=== PATIENT | male | born 1940 | race Hispanic/Latino ===

== ENCOUNTER 2020-07-15 05:09 | Emergency (ER) | payer MEDICARE ==
[2020-07-15] MEDS ORDERED: NA CHLORIDE 0.9% 1,000 ML ONE (05:50)
[2020-07-15 06:18] LABS: Absolute Lymphocytes (CBC) 1.1 K/uL (0.7-4.9); Basophils % 1.2 % (0-1.3); Hematocrit 42.2 % (39.6-49.0); Lymphocytes % 23.6 % (15.3-44.8); MPV 8.9 fL (7.6-11.3); RBC Red Blood Cell Count 4.62 M/uL (4.33-5.43)
[2020-07-15 06:42] LABS: ALT/SGPT 30 U/L (12-78); AST/SGOT 14 U/L (15-37); Albumin 3.4 g/dL (3.4-5.0); Alkaline Phosphatase 105 U/L (45-117); BUN Blood Urea Nitrogen 17 mg/dL (7-18); Bicarbonate 27 mmol/L (21-32); Bilirubin Direct 0.1 mg/dL (0-0.2); Bilirubin Total 0.4 mg/dL (0.2-1.0); Glucose Level 307 mg/dL (74-106); Lipase 131 U/L (73-393); Magnesium 1.9 mg/dL (1.8-2.4); NT PRO-BNP 94 pg/mL (<450); Protein, Total 7.2 g/dL (6.4-8.2); Sodium Level 138 mmol/L (136-145); Troponin (Emerg Dept Use Only) < 0.02 ng/mL (0.0-0.045)
--- NOTE | 2020-07-15 07:19 | ER ---
Nurse's Notes [facility] Name: Freddy Garcia Age: 80 yrs Sex: Male : 1940 Arrival Date: 07/15/2020 Time: 05:11 Bed 2 Private MD: Diagnosis: Type 2 diabetes mellitus-poorly controlled;Alzheimer's disease;Dementia in other diseases classified elsewhere Presentation: 07/15 05:11 Chief complaint: EMS states: PT is a diabetic and has dementia. Is acting more altered jb4 than normal. BGL of 363 with ashley. 05:11 Coronavirus screen: Client denies travel out of the [place] in the last 14 days. At this jb4 time, the client does not indicate any symptoms associated with coronavirus-19. Ebola Screen: No symptoms or risks identified at this time. Initial Sepsis Screen: Does the patient meet any 2 criteria? No. Patient's initial sepsis screen is negative. Does the patient have a suspected source of infection? No. Patient's initial sepsis screen is negative. Risk Assessment: Do you want to hurt yourself or someone else? Patient reports no desire to harm self or others. Onset of symptoms was July 15, 2020. 05:11 Method Of Arrival: EMS: [facility] 4 05:11 Acuity: IESHA 3 jb4 05:11 Care prior to arrival: Medication(s) given: NS 500ml IV initiated. 20 GA, in the right jb4 antecubital area. Historical: - Allergies: 05:11 No Known Allergies; jb4 - Home Meds: 05:11 mirtazapine Oral [Active]; memantine oral oral [Active]; tamsulosin oral oral [Active]; jb4 Metformin Oral [Active]; Timolol Maleate Opht [Active]; - PMHx: 05:11 Diabetes - NIDDM; Alzheimers; jb4 - PSHx: 05:11 Unable to obtain; jb4 - Immunization history:: Adult Immunizations unknown. - Social history:: Smoking status: unknown. - Family history:: not pertinent. Screenin:11 Abuse screen: Denies threats or abuse. Nutritional screening: No deficits noted. jb4 Tuberculosis screening: No symptoms or risk factors identified. Fall Risk None identified. Assessment: 05:11 General: Appears in no apparent distress. comfortable, Behavior is calm, cooperative, jb4 appropriate for age. Pain: Denies pain. Neuro: Level of Consciousness is awake, alert, obeys commands, Oriented to person, place, time, situation. Cardiovascular: Patient's skin is warm and dry. Respiratory: Airway is patent Respiratory effort is even, unlabored, Respiratory pattern is regular, symmetrical. GI: No signs and/or symptoms were reported involving the gastrointestinal system. : No signs and/or symptoms were reported regarding the genitourinary system. EENT: No signs and/or symptoms were reported regarding the EENT system. Derm: Skin is intact, Skin is pink, warm \T\ dry. Musculoskeletal: Circulation, motion, and sensation intact. Range of motion: intact in all extremities. 06:00 Reassessment: Patient appears in no apparent distress at this time. Patient and/or jb4 family updated on plan of care and expected duration. Pain level reassessed. Patient is alert, oriented x 3, equal unlabored respirations, skin warm/dry/pink. 07:00 Reassessment: Patient appears in no apparent distress at this time. Patient and/or jl7 family updated on plan of care and expected duration. Pain level reassessed. Patient is alert, oriented x 3, equal unlabored respirations, skin warm/dry/pink. Patient states feeling better. Neuro: Level of Consciousness is awake, alert, obeys commands, Oriented to person, place, time, situation. Vital Signs: 05:11 BP 186 / 96; Pulse 67; Resp 16; Temp 98.4(O); Pulse Ox 99% on R/A; Weight 79.38 kg (R); jb4 Height 5 ft. 9 in. (175.26 cm) (R); Pain 0/10; 06:00 BP 129 / 98; Pulse 66; Resp 16; Pulse Ox 99% on R/A; jb4 07:45 BP 160 / 88; Pulse 66; Resp 17; Pulse Ox 100% ; Pain 0/10; jl7 05:11 Body Mass Index 25.84 (79.38 kg, 175.26 cm) 4 ED Course: 05:11 Patient arrived in ED. sg 05:11 Arm band placed on right wrist. 4 05:14 Ubaldo Bolaños MD is Attending Physician. [facility] 05:25 Salvador Yanes, NIMESH is Primary Nurse. jb4 05:28 Triage completed. jb4 05:46 glucometer results - FOR PT WITH NO ID Sent. ds4 05:47 Glucose, Ancillary(No Armband) Sent. ds4 06:02 CT Head Brain wo Cont In Process Unspecified. EDMS 06:50 XRAY Chest (1 view) In Process Unspecified. EDMS 07:00 Patient has correct armband on for positive identification. Bed in low position. Call jl7 light in reach. Side rails up X 1. 07:00 Pulse ox on. NIBP on. jl7 07:00 No provider procedures requiring assistance completed. Initial lab(s) drawn, by ED jl staff, sent to lab. Maintain EMS IV. Dressing intact. Good blood return noted. Site clean \T\ dry. Gauge \T\ site: 20 right ac. 07:19 Cam Johnson MD is Referral Physician. [facility] 08:03 IV discontinued, intact, bleeding controlled, No redness/swelling at site. Pressure jl dressing applied. Administered Medications: 05:53 Drug: NS 0.9% 1000 ml Route: IV; Rate: 1 bolus; Site: right antecubital; banner 07:00 Follow up: Response: No adverse reaction; IV Status: Completed infusion; IV Intake: jl7 1000ml 07:50 Drug: Insulin Regular Human 7 units {Co-Signature: tw2 (Rosangela Lawson RN).} Route: IVP; [facility] Site: right antecubital; 08:02 Follow up: Response: No adverse reaction; Medication administered at discharge. jl7 07:50 Drug: LanTUS 30 units Route: Sub-Q; Site: abdomen; [facility] 08:02 Follow up: Response: Medication administered at discharge. jl7 Intake: 07:00 IV: 1000ml; Total: 1000ml. [facility] Outcome: 07:19 Discharge ordered by . [facility] 08:03 Discharged to home ambulatory. jl7 08:03 Condition: stable 08:03 Discharge instructions given to patient, family, Instructed on discharge instructions, follow up and referral plans. Demonstrated understanding of instructions, follow-up care. 08:04 Patient left the ED. jl7 Signatures: Dispatcher [employer] Eder Mcduffie RN RN sg Anderson, Corey, MD MD cha Swanson, Donovan 4 Joaquín, Salvador, RN RN jb4 Osman, Jahala, RN RN jl7 Rosangela Lawson RN tw2
--- NOTE | 2020-07-15 07:19 | EDPHYS ---
Physician Documentation [facility] Name: Freddy Garcia Age: 80 yrs Sex: Male : 1940 Arrival Date: 07/15/2020 Time: 05:11 Bed 2 Private MD: ED Physician Ubaldo Bolaños HPI: 07/15 05:22 This 80 yrs old Male presents to ER via Unassigned with complaints of high michael sugar and altered. 05:22 altered, hx of dementia. The patient presents with confusion, decreased mental status. michael Onset: The symptoms/episode began/occurred this morning. Possible causes: CVA or TIA, head injury, low blood sugar, unknown. Associated signs and symptoms: The patient has no apparent associated signs or symptoms. Patient's baseline: Neuro: alert and fully oriented. Severity of symptoms: At their worst the symptoms were mild in the emergency department the symptoms are unchanged. 05:25 Current symptoms: In the emergency department the patient's symptoms have improved, michael moderately. The patient has experienced similar episodes in the past, a few times. Historical: - Allergies: 05:11 No Known Allergies; jb4 - Home Meds: 05:11 mirtazapine Oral [Active]; memantine oral oral [Active]; tamsulosin oral oral [Active]; jb4 Metformin Oral [Active]; Timolol Maleate Opht [Active]; - PMHx: 05:11 Diabetes - NIDDM; Alzheimers; jb4 - PSHx: 05:11 Unable to obtain; jb4 - Immunization history:: Adult Immunizations unknown. - Social history:: Smoking status: unknown. - Family history:: not pertinent. ROS: 05:22 Constitutional: Negative for fever, chills, and weight loss, Eyes: Negative for injury, michael pain, redness, and discharge, ENT: Negative for injury, pain, and discharge, Neck: Negative for injury, pain, and swelling, Cardiovascular: Negative for chest pain, palpitations, and edema, Respiratory: Negative for shortness of breath, cough, wheezing, and pleuritic chest pain, Abdomen/GI: Negative for abdominal pain, nausea, vomiting, diarrhea, and constipation, Back: Negative for injury and pain, : Negative for injury, bleeding, discharge, and swelling, MS/Extremity: Negative for injury and deformity, Skin: Negative for injury, rash, and discoloration, Psych: Negative for depression, anxiety, suicide ideation, homicidal ideation, and hallucinations, Allergy/Immunology: Negative for hives, rash, and allergies, Endocrine: Negative for neck swelling, polydipsia, polyuria, polyphagia, and marked weight changes, Hematologic/Lymphatic: Negative for swollen nodes, abnormal bleeding, and unusual bruising. 05:22 Neuro: Positive for altered mental status. Exam: 05:22 Constitutional: This is a well developed, well nourished patient who is awake, alert, michael and in no acute distress. Head/Face: Normocephalic, atraumatic. Eyes: Pupils equal round and reactive to light, extra-ocular motions intact. Lids and lashes normal. Conjunctiva and sclera are non-icteric and not injected. Cornea within normal limits. Periorbital areas with no swelling, redness, or edema. ENT: Nares patent. No nasal discharge, no septal abnormalities noted. Tympanic membranes are normal and external auditory canals are clear. Oropharynx with no redness, swelling, or masses, exudates, or evidence of obstruction, uvula midline. Mucous membranes moist. Neck: Trachea midline, no thyromegaly or masses palpated, and no cervical lymphadenopathy. Supple, full range of motion without nuchal rigidity, or vertebral point tenderness. No Meningismus. Chest/axilla: Normal chest wall appearance and motion. Nontender with no deformity. No lesions are appreciated. Cardiovascular: Regular rate and rhythm with a normal S1 and S2. No gallops, murmurs, or rubs. Normal PMI, no JVD. No pulse deficits. Respiratory: Lungs have equal breath sounds bilaterally, clear to auscultation and percussion. No rales, rhonchi or wheezes noted. No increased work of breathing, no retractions or nasal flaring. Abdomen/GI: Soft, non-tender, with normal bowel sounds. No distension or tympany. No guarding or rebound. No evidence of tenderness throughout. Back: No spinal tenderness. No costovertebral tenderness. Full range of motion. Male : Normal genitalia with no discharge or lesions. Skin: Warm, dry with normal turgor. Normal color with no rashes, no lesions, and no evidence of cellulitis. MS/ Extremity: Pulses equal, no cyanosis. Neurovascular intact. Full, normal range of motion. Neuro: Awake and alert, GCS 15, oriented to person, place, time, and situation. Cranial nerves II-XII grossly intact. Motor strength 5/5 in all extremities. Sensory grossly intact. Cerebellar exam normal. Normal gait. Psych: Awake, alert, with orientation to person, place and time. Behavior, mood, and affect are within normal limits. 06:29 ECG was reviewed by the Attending Physician. [facility] Vital Signs: 05:11 BP 186 / 96; Pulse 67; Resp 16; Temp 98.4(O); Pulse Ox 99% on R/A; Weight 79.38 kg (R); jb4 Height 5 ft. 9 in. (175.26 cm) (R); Pain 0/10; 06:00 BP 129 / 98; Pulse 66; Resp 16; Pulse Ox 99% on R/A; jb4 07:45 BP 160 / 88; Pulse 66; Resp 17; Pulse Ox 100% ; Pain 0/10; jl7 05:11 Body Mass Index 25.84 (79.38 kg, 175.26 cm) jb4 MDM: 05:14 Patient medically screened. [facility] 05:24 Differential Diagnosis altered mental status. Differential Diagnosis: CVA, electrolyte michael abnormality, hypoglycemia, pneumonia, TIA, UTI, volume depletion. Data reviewed: vital signs, nurses notes, lab test result(s), EKG, radiologic studies, CT scan, plain films. Data interpreted: security monitor: rate is 75 beats/min, rhythm is regular, Pulse oximetry: on room air. Test interpretation: by ED physician or midlevel provider: ECG, plain radiologic studies. Counseling: I had a detailed discussion with the patient and/or guardian regarding: the historical points, exam findings, and any diagnostic results supporting the discharge/admit diagnosis, lab results, radiology results, the need for outpatient follow up. 07/15 05:21 Order name: Basic Metabolic Panel; Complete Time: 07:15 michael 07/15 05:21 Order name: CBC with Diff; Complete Time: 06:42 [facility] 07/15 05:21 Order name: LFT's; Complete Time: 07:15 michael 07/15 05:21 Order name: Magnesium; Complete Time: 07:15 michael 07/15 05:21 Order name: NT PRO-BNP; Complete Time: 07:15 [facility] 07/15 05:21 Order name: Troponin (emerg Dept Use Only); Complete Time: 07:15 [facility] 07/15 05:21 Order name: XRAY Chest (1 view) [facility] 07/15 05:21 Order name: Lipase; Complete Time: 07:15 [facility] 07/15 05:21 Order name: CT Head Brain wo Cont [facility] 07/15 05:21 Order name: Urine Culture [facility] 07/15 05:28 Order name: glucometer results - FOR PT WITH NO ID ds4 07/15 05:28 Order name: Glucose, Ancillary(No Armband) EDMS 07/15 05:46 Order name: Urine Dipstick--Ancillary (enter results) 2 07/15 05:21 Order name: EKG; Complete Time: 05:22 [facility] 07/15 05:21 Order name: Cardiac monitoring; Complete Time: 06:13 [facility] 07/15 05:21 Order name: EKG - Nurse/Tech; Complete Time: 06:13 [facility] 07/15 05:21 Order name: IV Saline Lock; Complete Time: 05:33 [facility] 07/15 05:21 Order name: Labs collected and sent; Complete Time: 06:03 [facility] 07/15 05:21 Order name: O2 Per Protocol; Complete Time: 05:28 [facility] 07/15 05:21 Order name: O2 Sat Monitoring; Complete Time: 05:28 [facility] 07/15 05:21 Order name: Urine Dipstick-Ancillary (obtain specimen); Complete Time: 05:26 [facility] EC:29 Rate is 62 beats/min. Rhythm is regular. QRS [place] is Normal. NM interval is normal. QRS michael interval is normal. QT interval is normal. No Q waves. T waves are Normal. No ST changes noted. Clinical impression: NSR w/ Non-specific ST/T Changes and No evidence of ischemia. Interpreted by me. Reviewed by me. Administered Medications: 05:53 Drug: NS 0.9% 1000 ml Route: IV; Rate: 1 bolus; Site: right antecubital; 4 07:00 Follow up: Response: No adverse reaction; IV Status: Completed infusion; IV Intake: jl7 1000ml 07:50 Drug: Insulin Regular Human 7 units {Co-Signature: tw2 (Rosangela Lawson RN).} Route: IVP; jl7 Site: right antecubital; 08:02 Follow up: Response: No adverse reaction; Medication administered at discharge. jl7 07:50 Drug: LanTUS 30 units Route: Sub-Q; Site: abdomen; [facility] 08:02 Follow up: Response: Medication administered at discharge. [facility] Disposition: 07/15/20 07:19 Discharged to Home. Impression: Type 2 diabetes mellitus - poorly controlled, Alzheimer's disease, Dementia in other diseases classified elsewhere. - Condition is Stable. - Discharge Instructions: Dementia, Type 2 Diabetes Mellitus, Diagnosis, Adult, Potassium Content of Foods, Diabetes Mellitus and Food, Type 2 Diabetes Mellitus, Diagnosis, Adult, [id number], Dementia, [id number]. - Medication Reconciliation Form, Thank You Letter, Antibiotic Education, Prescription Opioid Use form. - Follow up: Private Physician; When: 2 - 3 days; Reason: Recheck today's complaints, Continuance of care, Re-evaluation by your physician. Follow up: Cam Johnson MD; When: 2 - 3 days; Reason: Recheck today's complaints, Re-evaluation by your physician. - Problem is new. - Symptoms have improved. Signatures: Dispatcher [employer] EDUbaldo Santana MD MD cha Bryson, James, RN RN jb4 Judah Osman RN RN jl7 Rosangela Lawson RN tw2 Corrections: (The following items were deleted from the chart) 08:04 07:19 07/15/2020 07:19 Discharged to Home. Impression: Type 2 diabetes mellitus - [facility] poorly controlled; Alzheimer's disease; Dementia in other diseases classified elsewhere. Condition is Stable. Forms are Medication Reconciliation Form, Thank You Letter, Antibiotic Education, Prescription Opioid Use. Follow up: Private Physician; When: 2 - 3 days; Reason: Recheck today's complaints, Continuance of care, Re-evaluation by your physician. Follow up: Cam Johnson; When: 2 - 3 days; Reason: Recheck today's complaints, Re-evaluation by your physician. Problem is new. Symptoms have improved. michael
[2020-07-15] MEDS ORDERED: INSULIN -REGULAR HUMAN 50 UNIT/0.5 ML ML ONE (07:51)
[2020-07-15] MEDS ORDERED: INSULIN GLARGINE 100 UNITS/ML SQ ONE (07:51)
[2020-07-15 08:01] LABS: Urine Blood NEGATIVE (NEG); Urine Glucose 2+ (NEG); Urine Protein NEGATIVE (NEG); Urine Specific Gravity 1.015 (1.005-1.030); Urine pH 6.5 (5.0-7.0)
[2020-07-15 08:09] VITALS: TEMP 98.4
[2020-07-15 08:11] VITALS: BP 160/88; O2SAT 100
--- NOTE | 2020-07-15 08:43 | RAD REPORT ---
EXAM DESCRIPTION: RAD - Chest Single View - 07/15/2020 6:49 am CLINICAL HISTORY: COUGH COMPARISON: None TECHNIQUE: AP portable chest image was obtained 07/15/2020 6:49 am . FINDINGS: Lung volumes are low. No mass or consolidation. No significant failure or volume overload. Heart and vasculature are normal. No measurable pleural effusion and no pneumothorax. No acute bone findings seen. Focal density in the proximal humerus is probably a bone infarct. This does not appear to be aggressive. No acute aortic findings suspected. IMPRESSION: No acute cardiopulmonary process.
--- NOTE | 2020-07-15 10:25 | RAD REPORT ---
EXAM DESCRIPTION: CT - Head Brain Wo Cont - 07/15/2020 6:34 am CLINICAL HISTORY: The patient is 80 years old and is Male; DIZZINESS TECHNIQUE: Axial computed tomography images of the head/brain without intravenous contrast. Sagitt al and coronal reformatted images were created and reviewed. This CT exam was performed using one o r more of the following dose reduction techniques: automated exposure control, adjustment of the mA and/or kV according to patient size, and/or use of iterative reconstruction technique. COMPARISON: No relevant prior studies available. FINDINGS: Brain: Unremarkable. No hemorrhage. No significant white matter disease. No edema. Ventricles: Unremarkable. No ventriculomegaly. Bones/joints: Unremarkable. No acute skull fracture. Soft tissues: Unremarkable. Sinuses: Unremarkable as visualized. No acute sinusitis. Mastoid air cells: No significant mastoid fluid. IMPRESSION: No acute intracranial findings. No hemorrhage. Electronically signed by: Angelia Klein MD 07/15/2020 6:11 AM CDT Due to temporary technical issues with the PACS/Fluency reporting system, reports are being signed by the in house radiologist without review as a courtesy to ensure prompt reporting. The interpreting r adiologist is fully responsible for the content of the report.
== END 2020-07-15 08:04 | disposition home or self-care (01) ==
LOC: ER 05:09
DX: E11.65 Type 2 diabetes mellitus with hyperglycemia (principal); G30.9 Alzheimer's disease, unspecified; F02.80 Dementia in other diseases classified elsewhere, unspecified severity, without behavioral disturbance, psychotic disturbance, mood disturbance, and anxiety
CPT/HCPCS: 96361; 93005; 87088; 85025; 87086; 80048; 36415; 83735; 82947 ×2; 80076; 81003; 84484; 83690; 83880; 70450; 71045; 96372; 96374; 99284; J7030; J1815

== ENCOUNTER 2022-05-08 11:41 | Emergency (ER) | payer MEDICARE ==
[2022-05-08] MEDS ORDERED: IBUPROFEN 400 MG TAB ONE (12:44)
[2022-05-08] MEDS ORDERED: CYCLOBENZAPRINE 10 MG TAB ONE (12:44)
[2022-05-08] MEDS ORDERED: IBUPROFEN 200 MG TAB PO ONE (12:45)
--- NOTE | 2022-05-08 13:00 | RAD REPORT ---
EXAM DESCRIPTION: RAD - Shoulder Right 2 View - 05/08/2022 12:52 pm CLINICAL HISTORY: Right shoulder pain FINDINGS: A 27 millimeter sclerosis is present within the right humeral neck. It is equivocally mild ly enlarged from February 2020 exam Bones are osteoporotic. Moderate osteoarthritis involves the glenohumeral joint. Prominent osteophytes and joint space narrow ing is present. Mild osteoarthritis AC joint. No fracture or dislocation is seen. Given the equivocal mild enlargement of the 27 millimeter area of sclerosis within the right humeral neck it is recommended that the patient have a CT scan for further evaluation
--- NOTE | 2022-05-08 13:24 | ER ---
Nurse's Notes [facility] Name: Freddy Garcia Age: 81 yrs Sex: Male : 1940 Arrival Date: 05/08/2022 Time: 11:50 Bed 10 Private MD: Diagnosis: Pain in right shoulder Presentation: 05/08 12:09 Chief complaint: Patient states: "sharp" Right shoulder pain x 1 month; Denies injury. vg1 Coronavirus screen: Vaccine status: Patient reports receiving the 2nd dose of the covid vaccine. Client denies travel out of the [place] in the last 14 days. Ebola Screen: Patient denies exposure to infectious person. Patient denies travel to an Ebola-affected area in the 21 days before illness onset. Initial Sepsis Screen: Does the patient meet any 2 criteria? No. Patient's initial sepsis screen is negative. Does the patient have a suspected source of infection? No. Patient's initial sepsis screen is negative. Risk Assessment: Do you want to hurt yourself or someone else? Patient reports no desire to harm self or others. Onset of symptoms was March 2022. 12:09 Method Of Arrival: Ambulatory vg1 12:09 Acuity: IESHA 4 vg1 Triage Assessment: 12:09 General: Appears comfortable, Behavior is calm, cooperative. Pain: Complains of pain in vg1 Right shoulder Pain currently is 2 out of 10 on a pain scale. Musculoskeletal: Circulation, motion, and sensation intact. Historical: - Allergies: 12:11 No Known Allergies; vg1 - Home Meds: 12:11 Metformin Oral [Active]; vg1 - PMHx: 12:11 Alzheimers; Diabetes - NIDDM; vg1 12:14 Lewy Body Dementia; vg1 - Immunization history:: Client reports receiving the 2nd dose of the Covid vaccine. - Social history:: Smoking status: Patient denies any tobacco usage or history of. Screenin:45 Abuse screen: Denies threats or abuse. Denies injuries from another. Nutritional eh3 screening: No deficits noted. Tuberculosis screening: No symptoms or risk factors identified. Fall Risk None identified. Assessment: 12:43 General: Appears in no apparent distress. comfortable, Behavior is calm, cooperative, eh3 appropriate for age. Pain: Complains of pain in anterior aspect of right shoulder Pain radiates to right sternocleidomastoid Pain currently is 2 out of 10 on a pain scale. at worst was 10 out of 10 on a pain scale. Quality of pain is described as aching, radiating, sharp, tender, Pain began 1 month ago Is intermittent, Alleviated by rest, repositioning, relaxation, Aggravated by increased activity. 12:45 Neuro: Level of Consciousness is awake, alert, obeys commands, Oriented to person, eh3 place, time, situation, Sod Farmer are equal bilaterally Moves all extremities. Cardiovascular: Capillary refill < 3 seconds Patient's skin is warm and dry. Respiratory: Airway is patent Respiratory effort is even, unlabored. GI: No signs and/or symptoms were reported involving the gastrointestinal system. : No signs and/or symptoms were reported regarding the genitourinary system. EENT: No signs and/or symptoms were reported regarding the EENT system. Derm: No signs and/or symptoms reported regarding the dermatologic system. Musculoskeletal: Range of motion: intact in all extremities, Reports pain in right shoulder and right sternocleidomastoid and neck and right arm and anterior aspect of right shoulder. Vital Signs: 12:09 BP 160 / 85; Pulse 80; Resp 16; Temp 97.9; Pulse Ox 100% on R/A; Weight 66.22 kg; vg1 Height 5 ft. 3 in. (160.02 cm); Pain 2/10; 12:09 Body Mass Index 25.86 (66.22 kg, 160.02 cm) vg1 ED Course: 11:50 Patient arrived in ED. as 12:06 Bob Healy is PHCP. jl9 12:09 Arm band placed on. vg1 12:11 Triage completed. vg1 12:34 Shwetha Whiting, RN is Primary Nurse. ld1 12:45 Patient has correct armband on for positive identification. Bed in low position. Call eh3 light in reach. Side rails up X2. 12:45 No provider procedures requiring assistance completed. eh3 12:54 Shoulder Right (2 View) XRAY In Process Unspecified. EDMS 13:24 Bob Healy is PHCP. jl9 13:24 Reymundo Sullivan DO is Attending Physician. jl9 13:33 Patient did not have IV access during this emergency room visit. ld1 Administered Medications: 12:42 Drug: Flexeril (cyclobenzaprine) 10 mg Route: PO; eh3 12:42 Drug: Ibuprofen 600 mg Route: PO; eh3 Medication: 13:33 VIS not applicable for this client. ld1 Outcome: 13:23 Discharge ordered by . brett 13:32 Discharged to home via wheelchair. ld1 13:32 Condition: stable 13:32 Discharge instructions given to patient, Instructed on discharge instructions, follow up and referral plans. medication usage, Demonstrated understanding of instructions, follow-up care, medications, Prescriptions given X 1. 13:33 Patient left the ED. ld1 Signatures: Dispatcher [employer] Gwen Parks Victoria, RN RN vg1 Shwetha Whiting RN RN ld1 Rosa Maria Cortez eh3 Bob Healy9 Corrections: (The following items were deleted from the chart) 12:11 12:09 Pulse 80bpm; Resp 16bpm; Pulse Ox 100% RA; Temp 97.9F; 66.22 kg; Height 5 ft. 3 vg1 in.; BMI: 25.8; Pain 2/10; vg1 12:49 12:43 Pain: Complains of pain in anterior aspect of right shoulder Pain radiates to eh3 right sternocleidomastoid Pain currently is 2 out of 10 on a pain scale. at worst was 10 out of 10 on a pain scale. Quality of pain is described as eh3
--- NOTE | 2022-05-08 13:24 | EDPHYS ---
Physician Documentation [facility] Name: Freddy Garcia Age: 81 yrs Sex: Male : 1940 Arrival Date: 05/08/2022 Time: 11:50 Bed 10 Private MD: ED Physician Reymundo Sullivan HPI: 05/08 12:46 This 81 yrs old Male presents to ER via Ambulatory with complaints of Shoulder jl9 Pain.. 12:46 The patient or guardian complains of pain, that is acute. right shoulder. Context: jl9 Intermittent pain x1 month. . Modifying factors: The symptoms are aggravated by movement. Associated signs and symptoms: Pertinent positives: Pertinent negatives:. Severity of symptoms: in the emergency department the symptoms are unchanged. Treatment prior to arrival includes: over the counter medications, Tylenol. Historical: - Allergies: 12:11 No Known Allergies; vg1 - Home Meds: 12:11 Metformin Oral [Active]; vg1 - PMHx: 12:11 Alzheimers; Diabetes - NIDDM; vg1 12:14 Lewy Body Dementia; vg1 - Immunization history:: Client reports receiving the 2nd dose of the Covid vaccine. - Social history:: Smoking status: Patient denies any tobacco usage or history of. ROS: 13:08 Constitutional: Negative for fever, chills, and weight loss. jl9 13:08 Eyes: Negative for injury, pain, redness, and discharge, ENT: Negative for injury, pain, and discharge, Neck: Negative for injury, pain, and swelling, Cardiovascular: Negative for chest pain, palpitations, and edema, Respiratory: Negative for shortness of breath, cough, wheezing, and pleuritic chest pain, Abdomen/GI: Negative for abdominal pain, nausea, vomiting, diarrhea, and constipation, Back: Negative for injury and pain, : Negative for injury, bleeding, discharge, and swelling. 13:08 Skin: Negative for injury, rash, and discoloration, Neuro: Negative for headache, weakness, numbness, tingling, and seizure, Psych: Negative for depression, anxiety, suicide ideation, homicidal ideation, and hallucinations, Allergy/Immunology: Negative for hives, rash, and allergies, Endocrine: Negative for neck swelling, polydipsia, polyuria, polyphagia, and marked weight changes, Hematologic/Lymphatic: Negative for swollen nodes, abnormal bleeding, and unusual bruising. 13:08 MS/extremity: Positive for pain, Right shoulder pain upon movement. . Exam: 13:09 Constitutional: This is a well developed, well nourished patient who is awake, alert, jl9 and in no acute distress. Head/Face: Normocephalic, atraumatic. Eyes: Pupils equal round and reactive to light, extra-ocular motions intact. Lids and lashes normal. Conjunctiva and sclera are non-icteric and not injected. Cornea within normal limits. Periorbital areas with no swelling, redness, or edema. ENT: Mucous membranes moist. Neck: Trachea midline, no thyromegaly or masses palpated, and no cervical lymphadenopathy. Supple, full range of motion without nuchal rigidity, or vertebral point tenderness. No Meningismus. Chest/axilla: Normal chest wall appearance and motion. Nontender with no deformity. No lesions are appreciated. Cardiovascular: Regular rate and rhythm with a normal S1 and S2. No gallops, murmurs, or rubs. Normal PMI, no JVD. No pulse deficits. Respiratory: Lungs have equal breath sounds bilaterally, clear to auscultation and percussion. No rales, rhonchi or wheezes noted. No increased work of breathing, no retractions or nasal flaring. Abdomen/GI: Soft, non-tender, with normal bowel sounds. No distension or tympany. No guarding or rebound. No evidence of tenderness throughout. Back: No spinal tenderness. No costovertebral tenderness. Full range of motion. Skin: Warm, dry with normal turgor. Normal color with no rashes, no lesions, and no evidence of cellulitis. 13:09 Neuro: Awake and alert, GCS 15, oriented to person, place, time, and situation. Cranial nerves II-XII grossly intact. Motor strength 5/5 in all extremities. Sensory grossly intact. Cerebellar exam normal. Normal gait. Psych: Awake, alert, with orientation to person, place and time. Behavior, mood, and affect are within normal limits. 13:09 Musculoskeletal/extremity: ROM: limited active range of motion due to pain, in the right arm. Vital Signs: 12:09 BP 160 / 85; Pulse 80; Resp 16; Temp 97.9; Pulse Ox 100% on R/A; Weight 66.22 kg; vg1 Height 5 ft. 3 in. (160.02 cm); Pain 2/10; 12:09 Body Mass Index 25.86 (66.22 kg, 160.02 cm) vg1 MDM: 12:03 Patient medically screened. 9 13:28 Data reviewed: vital signs, nurses notes. jl9 05/08 12:27 Order name: Shoulder Right (2 View) XRAY; Complete Time: 13:07 9 Administered Medications: 12:42 Drug: Flexeril (cyclobenzaprine) 10 mg Route: PO; [facility] 12:42 Drug: Ibuprofen 600 mg Route: PO; [facility] Disposition: 21:57 Co-signature as Attending Physician, Reymundo HICKMAN was immediately available on-site ms3 in the Emergency Department for consultation in the care of the patient. . Disposition: 05/08/22 13:23 Discharged to Home. Impression: Pain in right shoulder. - Condition is Stable. - Discharge Instructions: Shoulder Pain, [id number]. - Prescriptions for Cyclobenzaprine 10 mg Oral Tablet - take 1 tablet by ORAL route every 8 hours As needed; 30 tablet. - Medication Reconciliation Form, Thank You Letter, Antibiotic Education, Prescription Opioid Use form. - Follow up: Private Physician; When: 1 - 2 days; Reason: Recheck today's complaints, Continuance of care, Re-evaluation by your physician. Signatures: Dispatcher [employer] Estela Mosquera, RN RN vg1 Reymundo Sullivan DO DO ms3 Rosa Maria Cortez 3 Bob Healy 9 Corrections: (The following items were deleted from the chart) 13:25 13:23 Home 9 9 13:25 13:23 Stable 9 9 13:25 13:23 Pain in right shoulder 9 9
[2022-05-08 13:38] VITALS: BP 160/85; TEMP 97.9; O2SAT 100
== END 2022-05-08 13:33 | disposition home or self-care (01) ==
LOC: ER 11:41
DX: M25.511 Pain in right shoulder (principal); G30.9 Alzheimer's disease, unspecified; F02.80 Dementia in other diseases classified elsewhere, unspecified severity, without behavioral disturbance, psychotic disturbance, mood disturbance, and anxiety
CPT/HCPCS: 99283

== ENCOUNTER 2023-02-16 12:34 | Emergency (ER) | payer MEDICARE ==
--- OUTSIDE RECORDS SUMMARY | 2023-02-16 12:37 | XMS REPORT | Continuity of Care Document ---
:1940 Author Organization [facility] t Address [address] [place] [id number] Care Team Providers Name Role Phone SYSTEM, PROVIDER NOT IN Attending Clinician Unavailable Problems This patient has no known problems. Allergies, Adverse Reactions, Alerts This patient has no known allergies or adverse reactions. Medications This patient has no known medications. Procedures This patient has no known procedures. Encounters Start End Encounter Admission Attending Care Care Encounter Source Date/Time Date/Time Type Type Clinicians Facility Department ID 2021-05-06 Outpatient SYSTEM, [facility] OTF [id number] 17:52:23 PROVIDER Ankit o n Results This patient has no known results.
[2023-02-16] MEDS ORDERED: LIDOCAINE 1% MPF 5 ML VIAL ONE (12:51)
--- NOTE | 2023-02-16 13:28 | RAD REPORT ---
EXAM DESCRIPTION: CT - Head Brain Wo Cont - 02/16/2023 1:17 pm CLINICAL HISTORY: Headache status post fall COMPARISON: 2014 TECHNIQUE: Computed axial tomography of the head was obtained. IV contrast was not requested. All CT scans are performed using dose optimization technique as appropriate and may include automated exposure control or mA/KV adjustment according to patient size. FINDINGS: An intracranial bleed is not seen The ventricles are normal in caliber No significant hypodense areas within the brain visualized No extra-axial fluid collection is noted. Mild to moderate cerebral atrophy Fluid within the sinuses/ mastoids is not seen IMPRESSION: No acute intracranial abnormality is seen If patient's symptoms persist MRI of the brain would be recommended
--- NOTE | 2023-02-16 15:00 | EDPHYS ---
Physician Documentation [facility] Name: Freddy Garcia Age: 82 yrs Sex: Male : 1940 Arrival Date: 02/16/2023 Time: 12:34 Bed 12 Private MD: ED Physician Reymundo Sullivan HPI: 02/16 15:24 This 82 yrs old Male presents to ER via Wheelchair with complaints of Fall kb Injury. 15:23 Associated injuries: The patient sustained injury to the head, laceration, 3 cm(s), of kb the right supraorbital ridge and outer aspect of right eyebrow. The patient has not experienced similar symptoms in the past. The patient has not recently seen a physician. 15:24 Details of fall: The patient fell from an upright position, while walking. Onset: The kb symptoms/episode began/occurred last night, at 00:00. Severity of symptoms: At their worst the symptoms were moderate, in the emergency department the symptoms are unchanged. Pt reports he slipped on the wet kitchen floor around midnight, fell and hit head on the floor. Denies loc. . Historical: - Allergies: 12:42 Codeine; ld1 - PMHx: 12:42 Diabetes - NIDDM; Alzheimers; Lewy Body Dementia; ld1 - Immunization history:: Adult Immunizations up to date, Client reports receiving the 2nd dose of the Covid vaccine. - Social history:: Smoking status: Patient denies any tobacco usage or history of. Patient/guardian denies using alcohol. ROS: 15:01 Constitutional: Negative for fever, chills, and weight loss. kb 15:01 Skin: Positive for laceration(s), of the outer aspect of right eyebrow and right supraorbital ridge. 15:01 All other systems are negative. Exam: 15:01 Constitutional: This is a well developed, well nourished patient who is awake, alert, kb and in no acute distress. ENT: Moist Mucous membranes Cardiovascular: Regular rate and rhythm with a normal S1 and S2. No gallops, murmurs, or rubs. No pulse deficits. Respiratory: Respirations even and unlabored. No increased work of breathing. Talking in full sentences MS/ Extremity: Pulses equal, no cyanosis. Neurovascular intact. Full, normal range of motion. Neuro: Awake and alert, GCS 15, oriented to person, place, time, and situation. Moves all extremities. Normal gait. 15:01 Skin: injury, laceration(s), the wound is approximately 3 cm(s), of the right supraorbital ridge and outer aspect of right eyebrow, that can be described as clean, no foreign body, irregular, without bleeding. Vital Signs: 12:40 BP 151 / 85; Pulse 91; Resp 18; Temp 98.9(TE); Pulse Ox 98% on R/A; Weight 58.97 kg; ld1 Height 5 ft. 8 in. ; Pain 0/10; 15:05 BP 146 / 69; Pulse 84; Resp 16; Pulse Ox 99% ; mb9 12:40 Body Mass Index 19.77 (58.97 kg, 172.72 cm) ld1 12:40 Pain Scale: Adult ld1 Laceration: 15:01 Wound Repair of 3cm ( 1.2in ) subcutaneous laceration to right supraorbital ridge and kb outer aspect of right eyebrow. Irregularly shaped.. Skin/tissue flap noted.. Distal neuro/vascular/tendon intact. Anesthesia: Wound infiltrated with 2 mls of 1% lidocaine. Wound prep: Extensive cleansing with hibiclenz by me, Wound irrigation with saline by me. Skin closed with 8 5-0 fast absorbing gut using simple sutures and sterile technique. Patient tolerated well. MDM: 12:38 Patient medically screened. kb 15:02 Data reviewed: vital signs, nurses notes. kb 15:23 Differential diagnosis: abrasion, closed head injury, contusion, fracture, laceration. kb Historians other than the Patient: Spouse/Significant Other: . Counseling: I had a detailed discussion with the patient and/or guardian regarding: the historical points, exam findings, and any diagnostic results supporting the discharge/admit diagnosis, radiology results, the need for outpatient follow up, a family practitioner, to return to the emergency department if symptoms worsen or persist or if there are any questions or concerns that arise at home. 02/16 12:44 Order name: CT Head Brain wo Cont; Complete Time: 13:35 kb 02/16 12:44 Order name: Dressing - Wound; Complete Time: 12:53 kb 02/16 12:44 Order name: Gloves, Sterile; Complete Time: 12:53 kb 02/16 12:44 Order name: Setup Suture Tray; Complete Time: 12:53 kb Administered Medications: 14:38 Drug: Lidocaine Infiltration (1 %) 1 vials Volume: 5 ml; Route: Infiltration; mb9 Disposition: 19:33 Co-signature as Attending Physician, Reymundo Sullivan DO I was immediately available on-site ms3 in the Emergency Department for consultation in the care of the patient. Disposition Summary: 02/16/23 14:59 Discharge Ordered Location: Home kb Condition: Stable kb Diagnosis - Laceration without foreign body of right eyelid and periocular area, initial kb encounter - Unspecified injury of head, initial encounter kb Followup: kb - With: Emergency Department - When: As needed - Reason: Worsening of condition Followup: kb - With: Private Physician - When: 2 - 3 days - Reason: Recheck today's complaints, Continuance of care, Re-evaluation by your physician Discharge Instructions: - Discharge Summary Sheet kb - Facial Laceration kb - Head Injury, Adult, [id number] kb Forms: - Medication Reconciliation Form kb - Thank You Letter kb - Antibiotic Education kb - Prescription Opioid Use kb Signatures: Dispatcher [employer] EDMS Anay Coronado, WEB PRESS OPERATOR-C WEB PRESS OPERATOR-Ckb Reymundo Sullivan DO DO ms3 Shwetha Sullivan RN RN ld1 Skye Seay, RN RN mb9
--- NOTE | 2023-02-16 15:00 | ER ---
Nurse's Notes [facility] Name: Freddy Garcia Age: 82 yrs Sex: Male : 1940 Arrival Date: 02/16/2023 Time: 12:34 Bed 12 Private MD: Diagnosis: Laceration without foreign body of right eyelid and periocular area, initial encounter;Unspecified injury of head, initial encounter Presentation: 02/16 12:40 Chief complaint: Patient states: Walk last night - slipped on tile floor. Hit right ld1 side of face on ground. Laceration to right eyebrow. Denies pain. Negative LOC, not on blood thinners. Coronavirus screen: At this time, the client does not indicate any symptoms associated with coronavirus-19. Ebola Screen: No symptoms or risks identified at this time. Initial Sepsis Screen: Does the patient meet any 2 criteria? No. Patient's initial sepsis screen is negative. Does the patient have a suspected source of infection? No. Patient's initial sepsis screen is negative. Risk Assessment: Do you want to hurt yourself or someone else? Patient reports no desire to harm self or others. Onset of symptoms was February 16, 2023 at 12:42. 12:40 Method Of Arrival: Wheelchair ld1 12:40 Acuity: IESHA 3 ld1 Triage Assessment: 12:42 General: Appears in no apparent distress. comfortable, Behavior is calm, cooperative, ld1 appropriate for age. Pain: Denies pain. EENT: No signs and/or symptoms were reported regarding the EENT system. Neuro: Level of Consciousness is awake, alert, obeys commands, Oriented to person, place, time, situation. Cardiovascular: Capillary refill < 3 seconds Patient's skin is warm and dry. Respiratory: Airway is patent Respiratory effort is even, unlabored. GI: Abdomen is flat, non-distended. : No signs and/or symptoms were reported regarding the genitourinary system. Derm: No signs and/or symptoms reported regarding the dermatologic system. Musculoskeletal: No signs and/or symptoms reported regarding the musculoskeletal system. Injury Description: Laceration sustained to inner aspect of right eyebrow, middle aspect of right eyebrow and outer aspect of right eyebrow was sustained 12-24 hours ago. Historical: - Allergies: 12:42 Codeine; ld1 - PMHx: 12:42 Diabetes - NIDDM; Alzheimers; Lewy Body Dementia; ld1 - Immunization history:: Adult Immunizations up to date, Client reports receiving the 2nd dose of the Covid vaccine. - Social history:: Smoking status: Patient denies any tobacco usage or history of. Patient/guardian denies using alcohol. Screenin:17 [facility] ED Fall Risk Assessment (Adult) History of falling in the last 3 months, mb9 including since admission No falls in past 3 months (0 pts) Confusion or Disorientation No (0 pts) Intoxicated or Sedated No (0 pts) Impaired Gait No (0 pts) Mobility Assist Device Used No (0 pt) Altered Elimination No (0 pt) Score/Fall Risk Level 0 - 2 = Low Risk Oriented to surroundings, Maintained a safe environment, Educated pt \T\ family on fall prevention, incl call for assistance when getting out of bed. Abuse screen: Denies threats or abuse. Nutritional screening: No deficits noted. Tuberculosis screening: No symptoms or risk factors identified. Assessment: 13:16 Pain: Denies pain. Neuro: Level of Consciousness is awake, alert, obeys commands, mb9 Oriented to person, place, time, situation, Appropriate for age. Cardiovascular: Patient's skin is warm and dry. Respiratory: Airway is patent Respiratory effort is even, unlabored, Respiratory pattern is regular, symmetrical. Derm: Skin is pink, warm \T\ dry. Injury Description: Laceration sustained to outer aspect of right eyebrow and middle aspect of right eyebrow and inner aspect of right eyebrow is 0.5 to 2.5 cm long, not bleeding, was sustained 12-24 hours ago. no active bleeding noted at this time. 14:34 Reassessment: No changes from previously documented assessment. Patient and/or family mb9 updated on plan of care and expected duration. Pain level reassessed. Patient is alert, oriented x 3, equal unlabored respirations, skin warm/dry/pink. Vital Signs: 12:40 BP 151 / 85; Pulse 91; Resp 18; Temp 98.9(TE); Pulse Ox 98% on R/A; Weight 58.97 kg; ld1 Height 5 ft. 8 in. ; Pain 0/10; 15:05 BP 146 / 69; Pulse 84; Resp 16; Pulse Ox 99% ; mb9 12:40 Body Mass Index 19.77 (58.97 kg, 172.72 cm) ld1 12:40 Pain Scale: Adult ld1 ED Course: 12:36 Patient arrived in ED. rg4 12:38 Anay Coronado FNP-C is [facility]. kb 12:38 Reymundo Sullivan DO is Attending Physician. kb 12:42 Triage completed. ld1 12:42 Arm band placed on right wrist. ld1 13:15 Skye Seay, RN is Primary Nurse. mb9 13:17 Placed in gown. Bed in low position. Call light in reach. Side rails up X 1. Client mb9 placed on continuous cardiac and pulse oximetry monitoring. NIBP monitoring applied. 13:17 No provider procedures requiring assistance completed. mb9 13:18 CT Head Brain wo Cont In Process Unspecified. EDMS 15:06 Patient did not have IV access during this emergency room visit. mb9 Administered Medications: 14:38 Drug: Lidocaine Infiltration (1 %) 1 vials Volume: 5 ml; Route: Infiltration; mb9 Medication: 13:18 VIS not applicable for this client. mb9 Outcome: 14:59 Discharge ordered by MD. kb 15:06 Discharged to home via wheelchair. mb9 15:06 Condition: stable 15:06 Discharge instructions given to patient, Instructed on discharge instructions, follow up and referral plans. Demonstrated understanding of instructions, follow-up care. 15:07 Patient left the ED. mb9 Signatures: Dispatcher [employer] EDCO Anay Coronado FNP-C FNP-Trish Lakhani rg4 Shwetha Sullivan RN RN ld1 Skye Seay, RN RN mb9
[2023-02-16 15:13] VITALS: TEMP 98.9
[2023-02-16 15:14] VITALS: BP 146/69; O2SAT 99
== END 2023-02-16 15:07 | disposition home or self-care (01) ==
LOC: ER 12:34
PROC: 0HQ1XZZ Repair Face Skin, External Approach (ICD-10-PCS; principal; 2023-02-16)
DX: S01.111A Laceration without foreign body of right eyelid and periocular area, initial encounter (principal); G30.9 Alzheimer's disease, unspecified; F02.80 Dementia in other diseases classified elsewhere, unspecified severity, without behavioral disturbance, psychotic disturbance, mood disturbance, and anxiety; G31.83 Neurocognitive disorder with Lewy bodies; Z88.5 Allergy status to narcotic agent
CPT/HCPCS: 70450; 12013; J2001

== ENCOUNTER 2023-09-23 04:59 | Emergency (ER) | payer MEDICARE ==
--- OUTSIDE RECORDS SUMMARY | 2023-09-23 05:02 | XMS REPORT | Continuity of Care Document ---
:1940 Author Organization [facility] t Address [address] [place] [id number] Care Team Providers Name Role Phone SYSTEM, [...] Clinicians Facility Department ID 2021-05-06 Outpatient SYSTEM, [facility] OTF [id number] 17:52:23 PROVIDER Ankit o n Results This patient has no known results.
[2023-09-23 07:00] LABS: Absolute Lymphocytes (CBC) 1.2 K/uL (0.7-4.9); Hematocrit 40.3 % (39.6-49.0); Lymphocytes % 12.3 % (15.3-44.8); MCV 94.5 fL (80-100); Platelets 187 thou/uL (152-406); RBC Red Blood Cell Count 4.26 M/uL (4.33-5.43)
[2023-09-23 07:16] LABS: Albumin 3.5 g/dL (3.4-5.0); Bilirubin Total 0.3 mg/dL (0.2-1.0); Potassium 3.8 mEq/L (3.5-5.1); Protein, Total 6.6 g/dL (6.4-8.2)
[2023-09-23] MEDS ORDERED: NA CHLORIDE 0.9% 500 ML ONE (07:56)
--- NOTE | 2023-09-23 08:36 | EDPHYS ---
Physician Documentation [facility] Name: Freddy Garcia Age: 83 yrs Sex: Male : 1940 Arrival Date: 09/23/2023 Time: 04:59 Bed 18 Private MD: ED Physician Ubaldo Bolaños HPI: 09/23 05:13 This 83 yrs old Male presents to ER via Unassigned with complaints of Possible ms3 Overdose. 05:13 83-year-old male with past medical history of Alzheimer's, diabetes, Lewy body dementia ms3 presents to the emergency department after waking up at 3 AM and taking 6 of his 10 mg donepezil tablets. Patient's noted patient slipped and fell at approximately 4:00. Patient has vomited 3 times and has become sleepy.. Historical: - Allergies: 05:12 Codeine; as6 - PMHx: 05:12 Alzheimers; Diabetes - NIDDM; Lewy Body Dementia; as6 - PSHx: 05:12 None; as6 - Immunization history:: Adult Immunizations up to date. - Social history:: Smoking status: Patient denies any tobacco usage or history of. ROS: 05:13 Constitutional: Negative for fever, and chills. Neck: Negative for injury, pain, and ms3 swelling, Cardiovascular: Negative for chest pain, and palpitations. Respiratory: Negative for shortness of breath, cough, wheezing, and pleuritic chest pain, 05:13 MS/Extremity: Negative for injury and deformity, Skin: Negative for injury, rash, and discoloration, 05:13 Abdomen/GI: Positive for nausea and vomiting, 05:13 All other systems are negative, Exam: 05:13 Constitutional: This is a well developed, well nourished patient who is awake, alert, ms3 and in no acute distress. Head/Face: Normocephalic, atraumatic. Neck: Trachea midline, no cervical lymphadenopathy. Supple, full range of motion without nuchal rigidity, or vertebral point tenderness. No Meningismus. Chest/axilla: Normal chest wall appearance and motion. Nontender with no deformity. Cardiovascular: Regular rate and rhythm with a normal S1 and S2. No gallops, murmurs, or rubs. Normal PMI, no JVD. No pulse deficits. Respiratory: Lungs have equal breath sounds bilaterally, clear to auscultation and percussion. No rales, rhonchi or wheezes noted. No increased work of breathing, no retractions or nasal flaring. Abdomen/GI: Soft, non-tender, with normal bowel sounds. No distension or tympany. No guarding or rebound. No evidence of tenderness throughout. Skin: Warm, dry with normal turgor. Normal color with no rashes, no lesions, and no evidence of cellulitis. MS/ Extremity: Pulses equal, no cyanosis. Neurovascular intact. Full, normal range of motion. 06:06 ECG was reviewed by the Attending Physician. ms3 Vital Signs: 05:12 BP 153 / 113; Pulse 67; Resp 18 S; Temp 97.4(TE); Pulse Ox 99% on R/A; Weight 58.97 kg as6 (R); Height 5 ft. 8 in. (R); Pain 0/10; 08:08 BP 117 / 82; Pulse 73; Resp 15; Pulse Ox 99% on R/A; hb 05:12 Body Mass Index 19.77 (58.97 kg, 172.72 cm) as6 05:12 Pain Scale: Adult as6 MDM: 05:12 Patient medically screened. ms3 05:13 Differential diagnosis: over medication, closed head injury, intracranial hemorrhage. ms3 06:56 Transition of care: After a detail discussion of the patient's case, care is ms3 transferred to Ubaldo Bolaños MD. 07:19 Data reviewed: vital signs, nurses notes, lab test result(s), radiologic studies, CT michael scan. Consideration of Admission/Observation Escalation of care including admission/observation considered. I considered the following discharge prescriptions or medication management in the emergency department Medications were administered in the Emergency Department. See MAR. Independent interpretation of the following test(s) in the Emergency Department EKG: See my EKG interpretation above. Test considered but Not performed: X-ray: no cxr. Care significantly affected by the following chronic conditions: Diabetes, Hypertension, dementia. 12 05:59 Order name: CBC with Diff; Complete Time: 07:18 ms3 09/23 05:59 Order name: CMP; Complete Time: 07:18 ms3 09/23 05:13 Order name: CT Head C Spine ms3 09/23 05:13 Order name: EKG; Complete Time: 05:13 ms3 09/23 05:13 Order name: EKG - Nurse/Tech; Complete Time: 06:16 ms3 09/23 05:59 Order name: IV Saline Lock; Complete Time: 06:35 ms3 09/23 07:49 Order name: Blood Pressure Recheck; Complete Time: 08:09 michael EC:06 Rate is 61 beats/min. Rhythm is regular. QRS [place] is Normal. NM interval is normal. QRS ms3 interval is normal. Clinical impression: NSR w/ Non-specific ST/T Changes. Interpreted by me. Reviewed by me. Administered Medications: 08:08 Drug: NS 0.9% IV 500 ml IV at bolus once Route: IV; Rate: bolus; Site: right hb antecubital; Disposition Summary: 09/23/23 08:36 Discharge Ordered Notes: Location: Home michael Problem: new michael Symptoms: have improved michael Condition: Stable michael Diagnosis - Fall on same level, unspecified michael - Essential (primary) hypertension michael - Medication Overdose michael Followup: michael - With: Private Physician - When: 2 - 3 days - Reason: Recheck today's complaints, Continuance of care, Re-evaluation by your physician Discharge Instructions: - Insomnia michael - Hypertension, Adult, [id number] michael - Aspirin and Your Heart michael - Discharge Summary Sheet ms3 - Fall Prevention in the Home, Adult ms3 - Hypertension, Adult ms3 - DASH Eating Plan ms3 Forms: - Medication Reconciliation Form michael - Thank You Letter michael - Antibiotic Education michael - Prescription Opioid Use michael - Patient Portal Instructions michael - Leadership Thank You Letter michael Signatures: Dispatcher [employer] Ubaldo Ventura MD MD cha Baxter, Heather, RN RN Reymundo Sullivan DO DO ms3 Dhruv Haq RN RN as6
--- NOTE | 2023-09-23 08:36 | ER ---
Nurse's Notes [facility] Name: Freddy Garcia Age: 83 yrs Sex: Male : 1940 Arrival Date: 09/23/2023 Time: 04:59 Bed 18 Private MD: Diagnosis: Fall on same level, unspecified;Essential (primary) hypertension;Medication Overdose Presentation: 09/23 05:12 Chief complaint: Spouse and/or significant other states: "he was having trouble as6 sleeping and he took 6 of his sleeping pills instead of just one" pt took Donepezil 10mg x6. Coronavirus screen: At this time, the client does not indicate any symptoms associated with coronavirus-19. Ebola Screen: No symptoms or risks identified at this time. Initial Sepsis Screen: Does the patient meet any 2 criteria? No. Patient's initial sepsis screen is negative. Does the patient have a suspected source of infection? No. Patient's initial sepsis screen is negative. Risk Assessment: Do you want to hurt yourself or someone else? Patient reports no desire to harm self or others. Onset of symptoms was September 23, 2023 at 03:00. 05:12 Acuity: IESHA 3 as6 05:12 Method Of Arrival: Wheelchair as6 Triage Assessment: 05:14 General: Appears in no apparent distress. Behavior is calm, cooperative. Pain: Denies as6 pain. Historical: - Allergies: 05:12 Codeine; as6 - PMHx: 05:12 Alzheimers; Diabetes - NIDDM; Lewy Body Dementia; as6 - PSHx: 05:12 None; as6 - Immunization history:: Adult Immunizations up to date. - Social history:: Smoking status: Patient denies any tobacco usage or history of. Screenin:38 [facility] ED Fall Risk Assessment (Adult) History of falling in the last 3 months, nw1 including since admission No falls in past 3 months (0 pts) Confusion or Disorientation No (0 pts) Intoxicated or Sedated No (0 pts) Impaired Gait No (0 pts) Mobility Assist Device Used No (0 pt) Altered Elimination No (0 pt) Score/Fall Risk Level. Abuse screen: Denies threats or abuse. Denies injuries from another. Nutritional screening: No deficits noted. Tuberculosis screening: No symptoms or risk factors identified. Assessment: 05:24 General: poison control , recommendation to monitor for nausea, as6 vomiting, diarrhea, abdominal pain, increased urination, diaphoresis, and in severe cases bradycardia and give supportive medications as needed . 05:42 Reassessment: Patient noted in room, No report received or made known of patient in nw1 room. Will introduce and assess. 07:15 Reassessment: Patient appears in no apparent distress at this time. Patient and/or hb family updated on plan of care and expected duration. Pain level reassessed. 08:57 Reassessment: Patient appears in no apparent distress at this time. Patient and/or hb family updated on plan of care and expected duration. Pain level reassessed. Vital Signs: 05:12 BP 153 / 113; Pulse 67; Resp 18 S; Temp 97.4(TE); Pulse Ox 99% on R/A; Weight 58.97 kg as6 (R); Height 5 ft. 8 in. (R); Pain 0/10; 08:08 BP 117 / 82; Pulse 73; Resp 15; Pulse Ox 99% on R/A; hb 05:12 Body Mass Index 19.77 (58.97 kg, 172.72 cm) as6 05:12 Pain Scale: Adult as6 ED Course: 05:03 Patient arrived in ED. jj6 05:05 Reymundo Sullivan DO is Attending Physician. ms3 05:12 Arm band placed on. as6 05:14 Triage completed. as6 05:50 Nayely Oconnell, RN is Primary Nurse. nw1 05:50 CT Head C Spine Sent. nw1 06:08 CT Head C Spine In Process Unspecified. EDMS 06:35 CMP Sent. nw1 06:35 CBC with Diff Sent. nw1 06:38 Patient has correct armband on for positive identification. Bed in low position. Side nw1 rails up X2. Adult w/ patient. Provided Education on: POC. Client placed on continuous cardiac and pulse oximetry monitoring. NIBP monitoring applied. potline monitor on. Pulse ox on. NIBP on. Door closed. Noise minimized. Lights dimmed. Warm blanket given. 06:56 Attending Physician role handed off by Reymundo Sullivan DO ms3 06:56 Ubaldo Bolaños MD is Attending Physician. ms3 09:00 No provider procedures requiring assistance completed. IV discontinued, intact, hb bleeding controlled, No redness/swelling at site. Administered Medications: 08:08 Drug: NS 0.9% IV 500 ml IV at bolus once Route: IV; Rate: bolus; Site: right hb antecubital; Medication: 06:38 VIS not applicable for this client. nw1 Outcome: 08:36 Discharge ordered by . michael 09:00 Discharged to home via wheelchair, with significant other, 09:00 Condition: stable 09:00 Discharge instructions given to Instructed on discharge instructions, follow up and referral plans. Demonstrated understanding of instructions, follow-up care, 09:00 Patient left the ED. Signatures: Dispatcher [employer] EDMS Ubaldo Bolaños MD MD cha Baxter, Heather, RN RN Reymundo Sullivan DO DO ms3 Eve Bonner6 Dhruv Haq RN RN as6 Nayely Oconnell RN RN nw1
[2023-09-23 09:40] VITALS: TEMP 97.4; O2SAT 99
[2023-09-23 09:41] VITALS: BP 117/82
--- NOTE | 2023-09-24 10:39 | RAD REPORT ---
EXAM DESCRIPTION: CT - Head C Spine Mpr Wo Con - 09/23/2023 11:49 am CLINICAL HISTORY: The patient is 83 years old and is Male; fall TECHNIQUE: Axial computed tomography images of the head/brain and cervical spine without intravenous contrast. Sagittal and coronal reformatted images were created and reviewed. This CT exam was pe rformed using one or more of the following dose reduction techniques: automated exposure control, a djustment of the mA and/or kV according to patient size, and/or use of iterative reconstruction techn ique. COMPARISON: No relevant prior studies available. FINDINGS: Brain: Mild cerebral atrophy. Mild nonspecific white matter changes likely related to chronic microvascular ischemic diseas e. No hemorrhage. Ventricles: Unremarkable. No ventriculomegaly. Skull: No acute fracture. Sinuses: Unremarkable as visualized. No acute sinusitis. Mastoid air cells: Unremarkable as visualized. No mastoid effusion. Vertebrae: See below. Discs/spinal canal/neural foramina: Multilevel disc space narrowing with degenerative endplate ch anges most prominent at C4-5, C5-6 and C6-7. Moderate left neural foraminal narrowing at C3-4. Moderate left neural foraminal narrowing at C4-5. Moderate right and moderate to severe left neural foraminal narrowing at C5-6. Moderate right neural foraminal narrowing at C6-7. Soft tissues: Unremarkable. IMPRESSION: No acute intracranial abnormality. No acute findings in the cervical spine. Electronically signed by: Yuriy Higginbotham MD 09/23/2023 06:33 AM WHARF TALLY CLERK Due to temporary technical issues with the PACS/Fluency reporting system, reports are being signed by the in house radiologist without review as a courtesy to ensure prompt reporting. The interpreting r adiologist is fully responsible for the content of the report.
--- NOTE | 2023-09-25 13:37 | EKG ---
Test Date: 2023-09-23 Test Time: 06:02:19 Remedial Reading Teacher: ADAIR MEASUREMENT RESULTS: Intervals: Rate: 61 MI: 180 QRSD: 100 QT: 412 QTc: 414 Maurice: P: 60 MI: 180 QRS: 1 T: 86 INTERPRETIVE STATEMENTS: Normal sinus rhythm Anterior infarct, age undetermined Abnormal ECG Compared to ECG 01/16/2023 07:33:31 Myocardial infarct finding now present ST (T wave) deviation no longer present Electronically Signed On 09-25-23 13:29:20 COLLEGE DEAN by Driss Lewis
== END 2023-09-23 09:00 | disposition home or self-care (01) ==
LOC: ER 04:59
DX: T44.1X1A Poisoning by other parasympathomimetics [cholinergics], accidental (unintentional), initial encounter (principal); I10 Essential (primary) hypertension; W18.30XA Fall on same level, unspecified, initial encounter; G30.9 Alzheimer's disease, unspecified; F02.80 Dementia in other diseases classified elsewhere, unspecified severity, without behavioral disturbance, psychotic disturbance, mood disturbance, and anxiety; Z88.5 Allergy status to narcotic agent
CPT/HCPCS: 93005; 85025; 36415; 80053; 70450; 72125; 99284; J7040